=== PATIENT | male | born 1970 | race Caucasian/White ===

== ENCOUNTER 2020-06-19 18:00 | Emergency (ER) | payer BC, SELFPAY ==
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
[2020-06-19 18:10] VITALS: BP 157/111; PULSE 67; RESP 20; TEMP 36.5; O2SAT 97
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
[2020-06-19] MEDS: CYCLOBENZAPRINE HCL 10 MG TABLET PO (19:17)
--- NOTE | 2020-06-19 19:19 | PC.NURSE ---
REPORT PROVIDED TO ONCOMING NURSE YEISON NICHOLAS
[2020-06-19 19:49] VITALS: BP 161/110; PULSE 89; RESP 20; TEMP 37.1; O2SAT 98
== END 2020-06-19 20:01 | disposition home or self-care (01) ==
PROVIDERS: Emergency Provider Family Medicine; PCP Internal Medicine
DX: S22.39XA Fracture of one rib, unspecified side, initial encounter for closed fracture (principal); S12.8XXA Fracture of other parts of neck, initial encounter; Y04.0XXA Assault by unarmed brawl or fight, initial encounter
CPT/HCPCS: 70490; 71111; 71250; 99283; 99284; A9270

== ENCOUNTER 2021-01-11 08:05 | Outpatient (CLI) | payer BC, OTHER, SELFPAY ==
[2021-01-11 08:32] LABS: Estimated Glomerular Filt Rate > 60
== END 2021-01-11 08:06 | disposition home or self-care (01) ==
LOC: CHSIMG 08:08
PROVIDERS: PCP Internal Medicine; Visit Provider Internal Medicine
DX: R51.9 Headache, unspecified (principal)
CPT/HCPCS: 99199

== ENCOUNTER 2021-04-07 15:31 | Emergency (ER) | payer BC, OTHER, SELFPAY ==
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
--- NOTE | 2021-04-07 15:37 | ED.NAVMDI ---
HPI - Nausea/Vomiting/Diarrhea General Chief complaint: Nausea/Vomiting/Diarrhea Stated complaint: AMB Source: patient and RN notes reviewed Mode of arrival: ambulatory Limitations: no limitations History of Present Illness MD elicited complaint: nausea, vomiting and diarrhea Onset (ago): day(s) (1) Description of diarrhea: watery Associated nausea: Yes Associated abdominal pain: No Pain consistency: intermittent Severity: severe Exacerbating factors: eating Relieving factors: none Associated symptoms: cough and shortness of breath Related Data Home Medications Medication Instructions Recorded Confirmed amlodipine 5 mg PO DAILY 05/06/19 04/07/21 gemfibrozil 600 mg PO BID 05/06/19 04/07/21 quetiapine [Seroquel] 50 mg PO HS 04/07/21 04/07/21 Allergies Allergy/AdvReac Type Severity Reaction Status Date / Time No Known Allergies Allergy Unverified 11/01/19 14:25 Review of Systems Review of Systems: All systems reviewed & are unremarkable except as noted in HPI and below Constitutional: Constitutional: Reports chills Cardiovascular: Cardiovascular: Denies chest pain and Denies rapid heart rate Respiratory: Respiratory: Reports cough and Reports dyspnea Gastrointestinal: Gastrointestinal: Reports diarrhea, Reports nausea and Reports vomiting Genitourinary: Genitourinary: Denies oliguria, Denies dysuria and Denies urinary frequency Musculoskeletal: Musculoskeletal: Denies muscle cramps Neurologic: Denies dizziness and Denies syncope PMFSH Past Medical History Medical History (Updated 04/07/21 @ 18:05 by Sherif Gudino MD) Anxiety and depression Chronic back pain Hyperlipidemia Hypertension Surgical History Surgical History (Updated 04/07/21 @ 18:05 by Sherif Gudino MD) H/O gastric sleeve H/O inguinal hernia repair H/O umbilical hernia repair History of ankle surgery History of appendectomy Social History Social History (Updated 04/07/21 @ 18:06 by Sherif Gudino MD) Smoking packs per day: 1 Smoking cigarettes per day: 20.0 Smoking status: Former smoker Alcohol intake: current Alcohol use details: Daily Substance use: never Exam Const: General: no acute distress, alert and ill appearing acutely; No diaphoretic Nutritional Appearance: well nourished and obese centrally obese Orientation/consciousness: patient oriented x3 HENMT: Head: normal to inspection Ears: external ears normal General nose exam: Normal external nose present Face and sinus: normal facial exam Mouth: Yes moist mucous membranes Eyes: Cornea: corneas normal Pupils: Equal, round and reactive pupils present EOM: EOMs intact bilaterally Neck: Neck: normal visual inspection Resp: Effort & Inspection: normal respiratory effort Auscultation: clear to auscultation bilaterally Cardio: Rate: regular rate Rhythm: regular rhythm GI: GI Palp: Yes Soft to palpation, Yes Tenderness to palpation present (GI) (Mild Sore), No Guarding due to palpation present (GI) and No Rigid due to palpation Auscultation: normal bowel sounds Back/Spine/Pelvis: Cervical Spine: cervical ROM normal Thoracic/Lumbar Spine: thoraco-lumbar ROM normal Skin: General skin exam: normal color Rashes: no rashes Neuro: General: patient oriented x3, moves all extremities, no meningeal signs, no focal motor deficits and CN's II-XI intact bilaterally Speech: normal speech Gait exam (Neuro): Normal gait present Extrem: General: normal to inspection and no clubbing, cyanosis or edema Psych: Appearance: grossly normal and well kempt Mental Status: mental status grossly normal Affect: normal affect Attitude: cooperative Thought content: Yes Normal thought content present Course Vital Signs Vital signs: Vital Signs Temperature 36.6 C 04/07/21 15:40 Pulse Rate 88 04/07/21 15:40 Respiratory Rate 22 H 04/07/21 15:40 Blood Pressure 126/90 04/07/21 15:40 Pulse Oximetry 92 04/07/21 15:40 Temperature 36.6 C
[2021-04-07 15:40] VITALS: BP 126/90; PULSE 88; RESP 22; TEMP 36.6; O2SAT 92
[2021-04-07 15:56] LABS: Basophils Absolute Auto 0.05 K/mm3 (0.00-0.10); Basophils Percent Auto 0.4 % (0.0-1.0); Eosinophils Absolute Auto 0.14 K/mm3 (0.02-0.50); Eosinophils Percent Auto 1.2 % (1.0-6.0); Hematocrit 56.1 % (40.0-54.0); Hemoglobin 18.6 g/dL (14.0-18.0); Immature Granulocyte Absolute 0.05 K/mm3 (0.00-0.00); Immature Granulocyte Percent A 0.4 % (0.0-0.0); Lymphocytes Absolute Auto 0.47 K/mm3 (1.10-4.50); Lymphocytes Percent Auto 3.9 % (18.0-42.0); Mean Corpuscular HGB Conc 33.2 g/dL (32.0-36.0); Mean Corpuscular Hemoglobin 31.6 pg (27.0-31.0); Mean Corpuscular Volume 95.2 fL (78.0-102.0); Mean Platelet Volume 10.6 fl (8.7-11.0); Monocytes Absolute Auto 0.54 K/mm3 (0.10-0.90); Monocytes Percent Auto 4.5 % (2.0-11.0); Neutrophils Absolute Auto 10.8 K/mm3 (1.7-7.2); Neutrophils Percent Auto 89.6 % (50.0-70.0); Platelet Count Result 266 K/mm3 (150-420); Red Blood Count 5.89 M/mm3 (4.70-6.10); Red Cell Distribution Width 12.1 % (11.6-14.4)
[2021-04-07] MEDS: ONDANSETRON INJ 4 MG/2 ML VIAL IV PUSH (16:00)
[2021-04-07] MEDS: LACTATED RINGERS 1,000 ML 999 ML IV CONT (16:00)
[2021-04-07 16:22] LABS: Alanine Aminotransferase 32 U/L (16-63); Albumin Level 4.9 g/dL (3.4-5.0); Alkaline Phosphatase 120 U/L (46-116); Anion Gap 16 mmol/L (8-16); Aspartate Amino Transferase 14 U/L (15-37); Bilirubin,Total 0.8 mg/dL (0.00-1.00); Blood Urea Nitrogen 25 mg/dL (7-18); CRP < 0.5 mg/dL (0.0-0.9); Calcium 10.1 mg/dL (8.5-10.1); Carbon Dioxide 21 mmol/L (21-32); Chloride 102 mmol/L (98-108); Estimated CRCL calculation 45 ml/min; Estimated Glomerular Filt Rate 35; Ferritin 194 ng/mL (26-388); Glucose 120 mg/dL (70-99); Magnesium 2.5 mg/dL (1.8-2.4); Osmolality Calculated 293 mOsm/kg (285-295); Potassium 4.5 mmol/L (3.5-5.1); Sodium 139 mmol/L (136-145); Total Protein 9.1 g/dL (6.4-8.2)
[2021-04-07 16:31] LABS: Influenza A QL RT-PCR Negative (Negative); Influenza B QL RT-PCR Negative (Negative); Lactic Acid Reflex 2.4 mmol/L (0.4-2.0); SARS-CoV-2 RNA PCR Negative (Negative)
[2021-04-07 17:00] VITALS: BP 130/78; PULSE 85; RESP 20; TEMP 37.5; O2SAT 100
[2021-04-07 17:44] VITALS: BP 132/70; PULSE 89; RESP 20; TEMP 37.2; O2SAT 97
--- NOTE | 2021-04-07 17:59 | PC.NURSE ---
called for a ride, waiting in bed until arrival
[2021-04-07 18:00] VITALS: BP 126/80; PULSE 80; RESP 16; TEMP 36.6; O2SAT 97
[2021-04-07 18:53] LABS: Reflex Lactic Acid Yes or No Add Lactic
== END 2021-04-07 18:44 | disposition home or self-care (01) ==
PROVIDERS: Emergency Provider Emergency Medicine; PCP Internal Medicine
DX: K52.9 Noninfective gastroenteritis and colitis, unspecified (principal); E78.5 Hyperlipidemia, unspecified; I10 Essential (primary) hypertension; Z87.891 Personal history of nicotine dependence; Z20.822 Contact with and (suspected) exposure to COVID-19
CPT/HCPCS: 71046; 80053; 82728; 83605; 83735; 85025; 86140; 87502; 96361; 96374; 99283; 99284; C9803; J2405; J7120; U0003; U0005

== ENCOUNTER 2021-04-23 16:15 | Outpatient (CLI) | payer BC, SELFPAY ==
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
== END 2021-04-23 16:16 | disposition home or self-care (01) ==
LOC: CHSIMG 16:18
PROVIDERS: PCP Internal Medicine; Visit Provider Nurse Practitioner Family
DX: M25.512 Pain in left shoulder (principal); M25.571 Pain in right ankle and joints of right foot; M25.561 Pain in right knee; M54.50 Low back pain, unspecified
CPT/HCPCS: 72100; 73030; 73502; 73562; 73610

== ENCOUNTER 2021-05-05 16:07 | Outpatient (CLI) | payer BC, SELFPAY ==
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
== END 2021-05-05 16:08 | disposition home or self-care (01) ==
LOC: CHSIMG 16:09
PROVIDERS: PCP Internal Medicine; Visit Provider Internal Medicine
DX: M54.6 Pain in thoracic spine (principal)
CPT/HCPCS: 71046; 72072

== ENCOUNTER 2022-04-25 10:44 | Emergency (ER) | payer OTHER, SELFPAY ==
[2022-04-25 10:45] VITALS: BP 141/101; PULSE 82; RESP 16; TEMP 37.1; O2SAT 97
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
[2022-04-25] MEDS: TETANUS,DIPHTHERIA,AC PERTUSSIS ADULT 0.5 ML (ADACEL) IM (11:29)
[2022-04-25 11:42] LABS: Basophils Absolute Auto 0.06 K/mm3 (0.00-0.10); Basophils Percent Auto 1.3 % (0.0-1.0); Eosinophils Absolute Auto 0.36 K/mm3 (0.02-0.50); Hematocrit 43.2 % (40.0-54.0); Hemoglobin 14.5 g/dL (14.0-18.0); Immature Granulocyte Absolute 0.01 K/mm3 (0.00-0.00); Immature Granulocyte Percent A 0.2 % (0.0-0.0); Lymphocytes Absolute Auto 1.75 K/mm3 (1.10-4.50); Lymphocytes Percent Auto 38.8 % (18.0-42.0); Mean Corpuscular HGB Conc 33.6 g/dL (32.0-36.0); Mean Corpuscular Hemoglobin 31.7 pg (27.0-31.0); Mean Corpuscular Volume 94.3 fL (78.0-102.0); Mean Platelet Volume 10.7 fl (8.7-11.0); Monocytes Absolute Auto 0.49 K/mm3 (0.10-0.90); Monocytes Percent Auto 10.9 % (2.0-11.0); Neutrophils Absolute Auto 1.8 K/mm3 (1.7-7.2); Neutrophils Percent Auto 40.8 % (50.0-70.0); Platelet Count Result 258 K/mm3 (150-420); Red Blood Count 4.58 M/mm3 (4.70-6.10); Red Cell Distribution Width 11.9 % (11.6-14.4); White Blood Count 4.5 K/mm3 (4.8-10.8)
[2022-04-25 11:56] LABS: D Dimer 0.45 mg/L (0.19-0.50)
[2022-04-25 11:57] LABS: Alanine Aminotransferase 28 U/L (16-63); Albumin Level 4.1 g/dL (3.4-5.0); Alkaline Phosphatase 93 U/L (46-116); Anion Gap 6 mmol/L (8-16); Aspartate Amino Transferase 16 U/L (15-37); Bilirubin,Total 1.1 mg/dL (0.00-1.00); Blood Urea Nitrogen 15 mg/dL (7-18); Calcium 8.8 mg/dL (8.5-10.1); Carbon Dioxide 29 mmol/L (21-32); Chloride 104 mmol/L (98-108); Estimated CRCL calculation 125 ml/min; Estimated Glomerular Filt Rate > 60; Glucose 96 mg/dL (70-99); Osmolality Calculated 288 mOsm/kg (285-295); Potassium 3.5 mmol/L (3.5-5.1); Sodium 139 mmol/L (136-145); Total Protein 7.5 g/dL (6.4-8.2)
[2022-04-25 12:05] LABS: Lactic Acid Reflex 0.4 mmol/L (0.4-2.0); NT Pro B Type Natriuretic Pept 13 pg/mL (0-125); Troponin I 8.9 ng/L (0.00-60.4)
[2022-04-25 13:04] VITALS: BP 141/101; PULSE 82; RESP 20; TEMP 37; O2SAT 94
== END 2022-04-25 12:45 | disposition home or self-care (01) ==
PROVIDERS: Emergency Provider Internal Medicine Critical Care Medicine
DX: L03.115 Cellulitis of right lower limb (principal); I10 Essential (primary) hypertension; F41.9 Anxiety disorder, unspecified; F32.9 Major depressive disorder, single episode, unspecified; E78.5 Hyperlipidemia, unspecified; Z87.891 Personal history of nicotine dependence; Z23 Encounter for immunization
CPT/HCPCS: 36415; 80053; 83605; 83880; 84484; 85025; 85380; 87040; 90471; 90715; 99283

== ENCOUNTER 2023-10-02 14:24 | Emergency (ER) | payer OTHER, SELFPAY ==
[2023-10-02 14:24] VITALS: BP 156/105; PULSE 85; RESP 17; TEMP 36.6; O2SAT 98
--- NOTE | 2023-10-02 14:25 | PC.NURSE ---
Patient states he hasn't taken his blood pressure medication yet today, ERP is aware of vitals.
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
--- NOTE | 2023-10-02 15:07 | PC.NURSE ---
Patient refused printed prescription for tramadol, prescription placed in shred box.
[2023-10-02 15:08] VITALS: BP 156/105; PULSE 85; RESP 17; TEMP 36.6; O2SAT 98
== END 2023-10-02 15:08 | disposition home or self-care (01) ==
LOC: CHSED 15:19
PROVIDERS: Emergency Provider Emergency Medicine
DX: S61.011A Laceration without foreign body of right thumb without damage to nail, initial encounter (principal); Z87.891 Personal history of nicotine dependence; F41.8 Other specified anxiety disorders; E78.5 Hyperlipidemia, unspecified; I10 Essential (primary) hypertension; M54.9 Dorsalgia, unspecified; G89.29 Other chronic pain
CPT/HCPCS: 99283

== ENCOUNTER 2025-05-04 16:50 | Emergency (ER) | payer OTHER, SELFPAY ==
[2025-05-04 16:50] VITALS: BP 147/102; PULSE 86; RESP 16; TEMP 36.3; O2SAT 96
--- OUTSIDE RECORDS SUMMARY | 2025-05-04 16:54 | XMS_ITS | Data Portability ---
Author Organization [facility]/Ezio LUNDBERG SI (11) Address [address] [facility] [address] [place] [address] Care Team Providers Care Floor Associate Name Role Phone Unavailable Primary Care Provider [phone] Unavailable Referring Provider Assessment Encounter Date Assessment Date Assessment LastModified by Organization Details LastModified Time 11/12/2016 11/12/2016 Patient weighed about 162- 170 pounds when he was around 20 years old he was in the [employer] and in [place]. He developed daytime sleepiness in his early 20s but was not diagnosed at that time. He got injured to the ankle bone around age 26 and he gained a lot of weight it went up to 368 pounds. He was diagnosed with sleep apnea about 15 years ago and was placed on the CPAP he still has trouble using the CPAP regularly. He uses about 5 to 6 times a week about five hours a night. He's also on pain medications and muscle relaxant. He had a gastric sleeve surgery June 2015 and lost over 140 pounds. So it is uncertain if he sleep apnea still present and he is not on the right pressure. First we had to retest him for sleep apnea and digest the CPAP pressure. If you can use the CPAP regularly seven days a week and gets sufficient sleep then he will need the retesting while on the CPAP regularly and obtain sufficient sleep and off sedative medications. But it is difficult to diagnose if he has narcolepsy are not at this point. He also drinks about 5 to 6 whiskey per day. We will plan initially testing for sleep apnea both baseline testing and CPAP titration if needed and doing MSL tear this point does not do any good. rell Not available 11/12/2016 16:56:53 Plan of Treatment Reminders Order Date Submit Date Provider Last Modified By Organization Details Last Modified Time Details Appointments None record ed. Lab None record ed. Referral None record ed. Procedures None record ed. Surgeries None record ed. Imaging None record ed. Medication Orders None record ed. Patient TargetsNo targets recorded. Patient InstructionsNo instructions recorded. Reason for Referral None Reported. Procedures Surgical History Date Name Laterality Status Provider Name and Address Organization Details Recorded Time 11/21/19 Sleep Study completed Cuauhtemoc [place] - [facility] 11/23/2016 11:12:56 Arthconnor avitia df anika&/tib completed JEWELS PUENTES MD, ANTOINE F.C.C.P. [address] [place] [address], [place] - [facility] 11/12/2016 16:21:55 Hernia Repair completed JEWELS PUENTES MD, Patricia SCHULTZ.C.C.P. [address] [place] [address], [place] [facility] 11/12/2016 16:22:25 Appendectomy completed JEWELS PUENTES MD, ANTOINE F.C.C.P. [address] [place] [address] [place] [facility] 11/12/2016 16:22:30 Imaging Results None recorded. Procedure Notes None recorded. Medical Equipment None Reported. Allergies No known drug allergies Medications Name Sig Start Date Stop Date Status Note LastModified by Organization Details LastModified Time celecoxib 200 mg capsule active Not Available Not Available Not Available cyclobenzaprine 10 mg tablet active Not Available Not Available Not Available ibuprofen 800 mg tablet active Not Available Not Available Not Available valacyclovir 1 gram tablet active Not Available Not Available Not Available hydrocodone 5 mg-acetaminophen 325 mg tablet active Not Available Not Availabl e Not Available acetaminophen 300 mg-codeine 30 mg tablet active Not Available Not Available Not Available amlodipine 5 mg tablet active Not Available Not Available Not Available ciprofloxacin 500 mg tablet active Not Available Not Available No t Available tramadol 50 mg tablet active Not Available Not Available Not Available tamsulosin 0.4 mg capsule active Not Available Not Available Not Available gemfibrozil 600 mg tablet active Not Available Not Available No t Available lidocaine 5 % topical patch active Not Available Not Availabl e Not Available ursodiol 300 mg capsule active Not Available Not Available Not Available omeprazole 20 mg capsule,delayed release active Not Available Not Available Not Available levofloxacin 500 mg tablet active Not Available Not Available No t Available oxybutynin chloride 5 mg tablet active Not Available Not Available Not Available Lyrica 75 mg capsule active Not Available Not Available Not Available Vitals Date Recorded Body height Body mass index (BMI) Body weight Oxygen saturation Heart rate Respiratory rate Systolic And Diastolic Provider Name and Address Organization Details Last Updated DateTime 7 190.5 cm 26.7 kg/m2 23563.7 7 g 97 % 73 /min 16 /min 130/80 mm[Hg] JEWELS PUENTES MD, ANTOINE F.C.C.P. NPI [id number] [place] [address], [id number] [place] [address] [facility] 7 16:48:37 Social History Question Answer Notes LastModified by Organizat ion Details LastModified Time Tobacco Smoking Status Former Smoker JEWELS PUENTES MD, ANTOINE F.C.C.P. [address] [place] [address], [phone] [place] [address] [facility] 11/12/2016 16:20:08 What Is Your Level Of Caffeine Consumption? Heavy Information not available 11/12/2016 Marital Status Informatio n not available 11/12/2016 How Many Children Do You Have? 1 Information not available 11/12/2016 Sex: Unknown Functional Status Question Answer Note LastModified by Organization D etails LastModified Time What is your level of alcohol consumption? Heavy Information not available 11/12/2016 Mental Status None recorded. Family History Nothing Reported. Medical History Condition Response Hypertension Y Sleep Apnea Y Past Encounters Encounter ID Performer Location Encounter Start Date Encounter Closed Date Diagnosis/Indication Diagnosis SNOMED-CT Code Diagnosis ICD10 Code Diagnosis IMO Codes Diagnosis Note [id number] JEWELS PUENTES MD, ANTOINE F.C.C.P. [facility] [phone]) [phone] [place] [address] 11/12/2016 15:59:53 11/12/2016 17:25:36 Obstructive sleep apnea of adult 9757159902 103 G47.33 Hypersomnia 19567130 G47 .10 [id number] [facility] [place], [facility] [phone]) [phone] [place] [address] 11/20/2016 21:35:35 11/23/2016 16:31:16 Obstructive sleep apnea of adult 8614704243 103 G47.33 Health Concerns Section Related Observation LastModified by Organization Detai ls LastModified Time None Recorded Concern Status LastModified by Organization Details LastModified Time None Recorded Advance Directives Directive None Recorded Payers Insurance Date Sequence Insurance Name Policy Number Policy Gonzalez Covered Member ID Gonzalez Member ID Guarantor Name 12/30/2016 [facility] [id number] Solomon Alfred [id number] [place] Alfred 12/30/2016 [facility] 4 Solomon Alfred [id number] [place] Alfred 12/29/2016 1 [id number] [employer] [id number] Solomon H Alfred II [id number] [place] Alfred 12/30/2016 [facility] 4 [place] Alfred [id number] [place] Alfred Notes Date Note Type Note Provider Name and Address Organization Details Recorded Time 7 text/html Sleep History-Reported by PatientHPIFor the patient presents with chief complaint of, patient reportssleepiness. For it is stated that, patient reportshe goes to bed around 9-1030 pmandusually falls asleep within 10 min. For the patient arises in the morning feeling, patient reportsgroggy,sleepy,at approximately 4.30 am, andunrefreshed. For awakening at night, patient reportsapproximately 3 per/night. For the patient, patient reportsdoes snoreandsnoring is reported to be occasional(on cpap 6nights aweek.). For witnessed apneas, gasping for breath, patient reportshave been noted. For the patient is, patient reportscurrently working asandduring the day he is frequently sleepy or fatigued. For the patient reports that, patient reportshe sometimes nods off off at work and at home. For during quiet activities (e.g. reading, watching tv), patient reportsthe patient __,there is a history of napping, and14 naps per week are reported. For during driving, patient reportsand has nodded off while drivingandthere have not been fall asleep accidents. For the epworth sleepiness, patient reportsscore is 17 (normal is less than 10). For the patient, patient reportsdoes not awaken with morning headaches. For there is, patient reportsno awakening with chest pain. For there, patient reportshave been problems with concentration memory difficulties __ __. For symptoms of, patient reportsleg restlessness occur in the evening before bedtime. For leg restlessness, patient reportsoccurs 7 per/week and does interfere with sleep onset. For symptoms of restless leg syndrome, patient reportsare relieved with movement. For the patient reports, patient reportsno history of sleep paralysis hypnagogic hallucinations cataplexy. For restless sleep, patient reportshas been notedandand kicking at night has been noted. For the patient, patient reportsconsumes alcoholandamount reported per day is(5). For the patient, patient reportsreports that he smoked cigarettes but stopped smoking years ago. For weight, patient reportsloss is reported. For the patient reports that there, patient reportsis not a family history of a sleep disorder.. JEWELS PUENTES MD, ANTOINE, F.C.C.P. [address], [address], [facility] - [facility] 11/12/2016 16:57:25
--- OUTSIDE RECORDS SUMMARY | 2025-05-04 16:54 | XMS_ITS | Clinical Summary ---
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 Gender Identity Not on file Sexual Orientation Not on file Plan of Treatment Health Maintenance Due Date Last Done Comments Colorectal Cancer Screening Colonoscopy (10 Years) 1970 Annual Physical 1973 Hepatitis C 1988 DTaP, Tdap and Td Vaccines ( 1 - Tdap) 1989 Hepatitis B Vaccines (1 of 3 - 19+ 3-dose series) 1989 Pneumococcal Vaccine: 50+ Ye ars (1 of 1 - PCV) 2020 Zoster Vaccines (1 of 2) 2020 COVID-19 Vaccine (2024-2 6 season) 2025 Influenza Adult (#1) 2025 Hepatitis A Vaccines Aged Out No long er eligible based on patient's age to complete this topic Meningococcal B Vaccine Aged Out No l onger eligible based on patient's age to complete this topic Meningococcal Vaccine Aged Out No seble thelma eligible based on patient's age to complete this topic RSV Immunizations Under 20 Months Aged Out No longer eligible based on patient's age to complete this topic
--- OUTSIDE RECORDS SUMMARY | 2025-05-04 16:54 | XMS_ITS | Clinical Summary ---
Author Organization [facility] Address [address] [place] [address] Phone Care Team Providers Care Contact Centre Supervisor Name Role Phone Raya Velazquez MD Primary Care Provider [phone] Allergies No known active allergies Active Problems Problem Noted Date Diagnosed Date Laceration of scalp without foreign body 017 Immunizations Immunization Administration Dates Next Due TDAP Vaccine 07/27/2016 Social History Tobacco Use Types Packs/Day Years Used Date Smoking Tobacco: Never Assessed Sex and Gender Information Value Date Recorded Sex Assigned at Not on file Legal Sex Male 6:23 PM CDT Gender Identity Not on file Sexual Orientation Not on file Last Filed Vital Signs Vital Sign Reading Time Taken Comments Blood Pressure 147/83 07/27/2016 7:06 PM CDT Pulse 77 07/27/2016 7:06 PM CDT Temperature 37.1 C (98.7 F) 07/27/2016 6:26 PM CDT Respiratory Rate 18 07/27/2016 7:06 PM CDT Oxygen Saturation 97% 07/27/2016 7:06 PM CDT Inhaled Oxygen Concentration - - Weight 98.4 kg (217 lb) 07/27/2016 6:26 PM CDT Height 190.5 cm (6' 3) 07/27/2016 6:26 PM CDT Body Mass Index 27.12 07/27/2016 6:26 PM CDT Plan of Treatment Not on file Insurance [facility] Member Subscriber Plan / Payer (Ef fective for All Dates) Name:Sapphire Mendiola Relation to Subscriber:Self Name:Sapphire Mendiola Payer ID:[id number] Group ID:Not on file Type:Not on file Address: Darrian Conway Attn: Fee Basis [address] [address] Care Teams Contact Centre Supervisor Relationship Specialty Start Date End Date Raya Velazquez MD [address] [place] [address] PCP - General Internal Medicine 07/27/16
--- OUTSIDE RECORDS SUMMARY | 2025-05-04 16:54 | XMS_ITS | Clinical Summary ---
Author Organization [facility] Address [address] [place] [address] Care Team Providers Care Boat Builder And Repairer Name Role Phone No, Physician Primary Care Provider [phone] Raya Velazquez MD Unavailable [phone] Anselmo Xavier MD Unavailable [phone] [facility], Deshaun Lopez Unavailable Allergies No known active allergies Medications calcium carbonate-vitam in D3 (CALCIUM 500 + D) 1,250mg (500mg elemental) - 200 units per tablet unsure med dosage tid Active famotidine (PEPCID) 20 mg tablet daily. Active HYDROcodone-luca taminophen (NORCO) 5-325 mg per tabletIndicatio ns:Pain Take 1 tablet by mouth 2 (two) times a day. 0 8 Active meloxicam (MOBIC) 15 mg tablet daily. 5 Active multivit,Ca,iro k-BG-qgrgpz-lut (MULTIVITAL) [phone] gl-eby-qjl-mcg tablet 2 tab daily 5 Active cyanocobalamin (Vitamin B-12) 100 mcg tabletIndicatio ns:Prevention of Vitamin B12 Deficiency 1000 mg TAKE 1 TABLET DAILY DIRECTED. Active amLODIPine (NORVASC) 5 mg tablet Take 5 mg by mouth daily. Active calcium acetate (PHOSLO) 667 mg tablet Take 1,334 mg by mouth 3 (three) times a day with meals. Active celecoxib (CeleBREX) 100 mg capsule Take 100 mg by mouth 2 (two) times a day. Active gemfibrozil (LOPID) 600 mg tablet Take 600 mg by mouth 2 (two) times a day before breakfast and lunch. Active qtwvvmvp-ufs-ej ondr-vit C-hyal [phone] mg tablet Take by mouth. Activ e multivitamin with iron tablet Take 1 tablet by mouth daily. Active b complex vitamins capsule Take 1 capsule by mouth daily. Active Active Problems Problem Noted Date Diagnosed Date Right inguinal hernia 07/07/2016 Malabsorption 11/22/2015 Obesity 11/22/2015 History of bariatric surgery 06/10/2015 Eating disorder, unspecified 03/15/2015 Morbid obesity 02/21/2015 Benign essential hypertension 02/21/2015 Obstructive sleep apnea syndrome 02/21/2015 Pure hypercholesterolemia 02/21/2015 Degeneration of intervertebral disc of lumbar re gion 03/06/2014 Overview (08/14/2016): DDD (degenerative disc disease), lumbar Compression fracture of lumbar vertebra 03/06/20 14 Overview (08/14/2016): Compression fracture of L1 lumbar vertebra with routine healing Adiposity 03/06/2014 Overview (08/14/2016): Obesity Surgical History Surgery Date Site/Laterality Comments GASTRIC RESTRICTION SURGERY HERNIA REPAIR ORTHOPEDIC SURGERY APPENDECTOMY Medical History Medical History Date Comments Hypercholesterolemia High choles terol Kidney calculi Family History Medical History Relation Name Comments Heart disease Father Family history of cardiac disorder - (Added by TW Conv) Hypertension Father Family history of hypertension - (Added by TW Conv) Stroke Father Family history of cerebrovascular accident (CVA) - (Added by TW Conv) Diabetes Mother Diabetes mellit us; /Family history of diabetes mellitus - (Added by TW Conv) Heart disease Mother Family history of cardiac disorder - (Added by TW Conv) Hypertension Mother Family history of hypertension - (Added by TW Conv) Obesity Mother Family history of obesity - (Added by TW Conv) Relation Name Status Comments Father Mother Social History Tobacco Use Types Packs/Day Years Used Date Smoking Tobacco: Former Smokeless Tobacco: Never Alcohol Use Standard Drinks/Week Comments Yes 14 (1 standard drink = 0.6 oz pu re alcohol) Sex and Gender Information Value Date Recorded Sex Assigned at Not on file 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 Gender Identity Not on file Sexual Orientation Not on file Last Filed Vital Signs Vital Sign Reading Time Taken Comments Blood Pressure 115/75 03/04/2018 11:38 AM CDT Pulse 60 03/04/2018 11:38 AM CDT Temperature 36.4 C (97.6 F) 03/04/2018 11:38 AM CDT Respiratory Rate 18 11/06/2017 7:24 PM CDT Oxygen Saturation 95% 03/04/2018 11:38 AM CDT Inhaled Oxygen Concentration - - Weight 120.2 kg (265 lb) 08/11/2024 5:44 PM CDT Height 190.5 cm (6' 3) 08/11/2024 5:44 PM CDT Body Mass Index 33.12 08/11/2024 5:44 PM CDT Plan of Treatment Health Maintenance Due Date Last Done Comments Colon Cancer Screening-Colonoscopy 1970 Depression Screening 1970 Prostate Cancer Screening-PSA 1970 Hepatitis B Screening 1988 Regular Well Visit/Exam 18-64 1988 Pneumococcal vaccine <65 (1 of 2 - PCV) 1989 Zoster Vaccine (2 of 2) 02/26/2023 01/01/2023 Influenza Vaccine (#1) 2025 6, 05/16/2014, 02/07/2013, Additional history exists DTaP/Tdap/Td Vaccine (3 - Td or Tdap) 07/27/2026 07/27/2016, 10/08/2010 Hepatitis C Screening Completed 03/04/2018 Procedures Procedure Name Priority Date/Time Associated Diagnosis Comments HEPATITIS C ANTIBODY Routine 03/04/2018 2:15 PM CDT from Last 3 Months or Most Recently Relevant to Health Maintenance Results * Hepatitis C antibody (03/04/2018 2:15 PM CDT) Hep C Ab NONREACT NONREACTIVE 03/04/2018 3:32 PM CDT [facility] HISTORICAL RESULTS Comment: Siemens ExosectaurXP using ARMIN (chemiluminescent immunoassay) technology. NONREACTIVE: Antibodies to Hepatitis C not detected. This does not exclude early acute Hepatitis C infection, possibility of exposure to Hepatitis C, antibodies below detection limit, or to lack of antibody reactivity to the antigen used in this assay. EQUIVOCAL: Antibodies to Hepatitis C may or may not be present. Sample to be confirmed by real-time PCR method. REACTIVE: Antibodies to Hepatitis C detected.Sample to be confirmed by real-time PCR method. 03/04/2018 2:15 PM CDT 03/04/2018 2:16 PM CDT Tim Bruce MD LAB MICROBIOLOGY - GENERAL ORDERABLES Final Result [facility] HISTORICAL RESULTS from Last 3 Months or Most Recently Relevant to Health Maintenance Insurance [facility] Member Subscriber Plan / Payer (Ef fective 2014-Present) Name:Solomon Simon Relation to Subscriber:Self Name:Solomon Simon Payer ID:[id number] (NAIC) Group ID:[id number] Type:[facility] Address: [facility] [id number] [address] [facility] Care Teams Boat Builder And Repairer Relationship Specialty Start Date End Date No, Physician PCP - General 11/06/17 Raya Velazquez MD [address] [place] [address] 11/06/17 Anselmo Xavier MD [address] [place] [address] [place] [address] 07/08/16 [facility], Deshaun Lopez [address] [place] [address] Referring Physician Genetics 06/30/24
--- OUTSIDE RECORDS SUMMARY | 2025-05-04 16:54 | XMS_ITS | Encounter Summary ---
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
--- OUTSIDE RECORDS SUMMARY | 2025-05-04 16:54 | XMS_ITS ---
Author Organization Unknown Address [address] [place] [phone] Phone Care Team Providers Care Accounting Software Specialist Name Role Phone WESLY BONILLA Attending Unavailable NO PCP Primary Unavailable Results URINE PROTEIN ELECTROPHORESI S - Collect Date/Time: 06/13/2024 14:38 [facility] ID: [id number] [place] [address], [phone] LOINC: 2888-6 Test Value Unit Reference Range Code Code System Flag Protein,Total,Urine 7.9 Not Estab. 2888-6 LOINC Albumin, U 34.3 20483-8 LOINC Opmsn-1-Itkbbekz, U 3.2 98090-3 LOINC Dmyeq-5-Krgyplzv, U 19.2 53227-6 LOINC Beta Globulin, U 25.5 03340-1 LOINC Gamma Globulin, U 17.9 63045-5 LOINC M-Haris, % Not Observed Not Observed 83912-0 LOINC Please note: COMMENT 48488-6 LOINC COMPREHENSIVE METABOLIC PANE L - Collect Date/Time: 06/13/2024 14:25 [facility] ID: [id number] [place] [address], [phone] LOINC: 13646-8 Test Value Unit Reference Range Code Code System Flag FASTING UNKNOWN BUN 22 mg/dL L=7 H=20 3094-0 LOINC H CREATININE 1.00 mg/dL L=0.66 H=1.25 2160-0 LOINC GLUCOSE 99 mg/dL L=74 H=106 2345-7 LOINC SODIUM 139 mmol/L L=132 H=144 2951-2 LOINC POTASSIUM 4.1 mmol/L L=3.5 H=5.1 2823-3 LOINC CHLORIDE 105 mmol/L L=98 H=107 2075-0 LOINC CO2 21.0 mmol/L L=22.0 H=30.0 2028-9 LOINC L ANION GAP 17 L=10 H=20 48030-9 LOINC OSMOLALITY 291 mOs/kG L=280 H=296 81044-1 LOINC BUN/CREAT 22.0 3097-3 LOINC CALCIUM 9.2 mg/dL L=8.3 H=10.5 63120-1 LOINC AST 29 U/L L=15 H=46 1920-8 LOINC ALT 28 U/L L=9 H=72 1742-6 LOINC ALKALINE PHOS 61 U/L L=38 H=126 6768-6 LOINC TOTAL BILI 0.5 mg/dL L=0.2 H=1.3 1975-2 LOINC ALBUMIN 4.6 G/dL L=3.5 H=5.0 1751-7 LOINC TOTAL PROTEIN 7.8 g/L L=6.3 H=8.2 2885-2 LOINC A/G RATIO 1.4 27858-5 LOINC AGE 53 11091-8 LOINC eGFR NON-AFR 83 ml/min eGFR AFR AMER 100 ml/min TSH - Collect Date/Time: 08/2024 14:25 [facility] ID: [id number] [address] [place] [address], [phone] LOINC: 23938-6 Test Value Unit Reference Range Code Code System Flag TSH. < 0.150 uIU/L L=0.470 H=4.680 38523-3 LOINC L HEP B SURFACE AG - Collect D ate/Time: 06/13/2024 14:25 [facility] ID: [id number] [address] [place] [address], [phone] LOINC: 5196-1 Test Value Unit Reference Range Code Code System Flag HBsAg Screen Negative Negative 5196-1 LOINC SEND TO [facility]? NO HEPATITIS C AB (HCV Ab) - Co llect Date/Time: 06/13/2024 14:25 [facility] ID: [id number] [address] [place] [address], [phone] LOINC: 35439-0 Test Value Unit Reference Range Code Code System Flag Hep C Virus Ab Non Reactive Non Reactive 13154-1 LOINC SEND TO IFC? NO 25 HYDROXY VITAMIN D - Colle ct Date/Time: 06/13/2024 14:25 [facility] ID: [id number] [address] [place] [address], [phone] LOINC: Test Value Unit Reference Range Code Code System Flag VITAMIN D 77.8 ng/ml L=30.0 H=100 63288-6 LOINC HGB A1C -GLYCOHEMOGLOBIN - C ollect Date/Time: 06/13/2024 14:25 [facility] ID: [id number] [address] [place] [address], [phone] LOINC: 4548-4 Test Value Unit Reference Range Code Code System Flag HGBA1C 5.2 % 4548-4 LOINC HEAVY METALS BLOOD - Collect Date/Time: 06/13/2024 14:25 [facility] ID: [id number] [address] [place] [address], [phone] LOINC: Test Value Unit Reference Range Code Code System Flag Lead, Blood 1.9 0.0-3.4 87582-7 LOINC Arsenic, Blood 1 0-9 5583-0 LOINC Mercury, Blood <1.0 0.0-14.9 5685-3 LOINC CPK - Collect Date/Time: 08/2024 14:25 [facility] ID: [id number] [address] [place] [address], [phone] LOINC: 2157-6 Test Value Unit Reference Range Code Code System Flag CPK 128 U/L L=30 H=170 2157-6 LOINC MAGNESIUM - Collect Date/Nito e: 06/13/2024 14:25 [facility] ID: [id number] [address] [place] [address], [id number] LOINC: 14484-1 Test Value Unit Reference Range Code Code System Flag MAGNESIUM 2.0 mg/dL L=1.6 H=2.3 84480-2 LOINC PHOSPHORUS - Collect Date/Ti me: 06/13/2024 14:25 [facility] ID: [id number] [address] [place] [address], [phone] LOINC: 2777-1 Test Value Unit Reference Range Code Code System Flag PHOSPHORUS 3.4 mg/dL L=2.5 H=4.9 2777-1 LOINC VITAMIN B-12 - Collect Date/ Time: 06/13/2024 14:25 [facility] ID: [id number] [address] [place] [address], [id number] LOINC: 2132-9 Test Value Unit Reference Range Code Code System Flag VITAMIN B12 > 993 pq/mL L=239 H=931 H VITAMIN B-6 - Collect Date/T delmis: 06/13/2024 14:25 [facility] ID: [id number] [address] [place] [address], [phone] LOINC: 56672-3 Test Value Unit Reference Range Code Code System Flag Vitamin B6 45.0 3.4-65.2 98215-4 LOINC METHYLMALONIC ACID - Collect Date/Time: 06/13/2024 14:25 [facility] ID: [id number] [address] [place] [address], [phone] LOINC: 57661-4 Test Value Unit Reference Range Code Code System Flag Methylmalonic Acid, Serum 153 0-378 15669-8 LOINC FOLIC ACID (SERUM) - Collect Date/Time: 06/13/2024 14:25 [facility] ID: [id number] [address] [place] [address], [id number] LOINC: 2284-8 Test Value Unit Reference Range Code Code System Flag FOLATE > 20.0 ng/mL L=2.7 H=20.0 2284-8 LOINC PROTEIN ELECTROPHORESIS SERU M - Collect Date/Time: 06/13/2024 14:25 [facility] ID: [id number] [address] [place] [address], [id number] LOINC: 2885-2 Test Value Unit Reference Range Code Code System Flag Protein, Total 6.8 6.0-8.5 2885-2 LOINC Albumin 3.8 2.9-4.4 2862-1 LOINC Wlwkc-8-Gdleexlt 0.1 0.0-0.4 2865-4 LOINC Cnguw-5-Pmuakevz 0.7 0.4-1.0 2868-8 LOINC Beta Globulin 1.2 0.7-1.3 2871-2 LOINC Gamma Globulin 1.0 0.4-1.8 2874-6 LOINC M-Haris Not Observed Not Observed 55082-6 LOINC Globulin, Total 3.0 2.2-3.9 93859-8 LOINC A/G Ratio 1.3 0.7-1.7 1759-0 LOINC Please note: COMMENT 21150-2 LOINC P E Interpretation, S COMMENT 59307-7 LOINC PDF . 89079-8 LOINC HIV 4th GEN Ab 1&2 p24 Ag in -house - Collect Date/Time: 06/13/2024 14:25 [facility] ID: [id number] [address] [place], [place], [phone] LOINC: 19767-2 Test Value Unit Reference Range Code Code System Flag SEND TO [facility]? NO REFLEX? NO 5778-6 LOINC CBC W/ DIFF - Collect Date/T delmis: 06/13/2024 14:25 [facility] ID: [id number] [address] [place], [place], [phone] LOINC: 62386-8 Test Value Unit Reference Range Code Code System Flag WBC 5.5 10^3uL L=4.8 H=10.8 RBC 4.72 10^6uL L=4.60 H=6.20 HEMOGLOBIN 15.1 g/dL L=14.0 H=18.0 718-7 LOINC HEMATOCRIT 45.1 VOL% L=42.0 H=52.0 4544-3 LOINC MCV 95.6 fL L=80.0 H=94.0 H MCH 32.0 pg L=27.0 H=32.0 MCHC 33.5 g/dL L=32.0 H=36.0 PLATELETS 229 10^3uL L=100 H=400 09399-3 LOINC RDW 12.1 % L=11.7 H=15.5 %GRAN 53.7 % L=40.0 H=70.0 48194-3 LOINC %LYMPH 32.5 % L=20.0 H=45.0 736-9 LOINC %MONO 8.3 % L=2.0 H=10.0 02547-7 LOINC %EOS 3.6 % L=0.0 H=6.0 713-8 LOINC %BASO 1.5 % L=0.0 H=3.0 706-2 LOINC #NEUT 3.0 10^3uL L=1.9 H=7.6 08471-4 LOINC #LYMPH 1.8 10^3uL L=0.9 H=4.9 55235-8 LOINC #MONO 0.5 10^3uL L=0.1 H=0.9 51243-0 LOINC #EOS 0.2 10^3uL L=0.0 H=0.6 712-0 LOINC #BASO 0.08 10^3uL L=0.00 H=0.10 25970-1 LOINC #IM GRANS 0.0 10^3uL L=0.0 H=7.0 64941-6 LOINC %IM GRANS 0.4 % L=0.0 H=5.0 36487-3 LOINC %NRB 0.0 L=0.0 H=0.2 06288-8 LOINC #NRB 0.000 L=0.000 H=0.012 97190-7 LOINC MANUAL DIFF NOT INDICATED RBC MORPH NOT INDICATED TREPONEMA ABS rfx RPR & ABRAN T - Collect Date/Time: 06/13/2024 14:25 [facility] ID: [id number] [address] [place], [place], [phone] LOINC: 39676-1 Test Value Unit Reference Range Code Code System Flag T pallidum Antibodies Non Reactive Non Reactive 69477-6 LOINC CHG RPR? NO SEND TO [facility]? NO Social History Type Status Start Date End Date Code Code Syst em Smoking History Former smoker 1002552 SNOMED CT Sex Male Vital Signs Vital Sign Value Unit Titus Value Titus Unit Date/Time Recent/Initial? Code Code System Body Mass Index 34.30 kg/m2 06/13/2024 13:19 Initial 81842 -5 LOINC Systolic Blood Pressure 172 mm[Hg] 06/13/2024 13:19 Initial 8480- 6 LOINC Diastolic Blood Pressure 101 mm[Hg] 06/13/2024 13:19 Initial 8462- 4 LOINC Body Surface Area 2.46 m2 06/13/2024 13:19 Initial 3140- 1 LOINC Height 185.420 0 cm 73.00 in 06/13/2024 13:19 Initial 8302- 2 LOINC O2 Saturation 97 % 2024 13:19 Initial 48216 -5 LOINC Pulse 78.0 /min 06/13/2024 13:19 Initial 8867- 4 LOINC Respiration 18 /min 06/13/19 13:19 Initial 9279- 1 LOINC Weight 117.93 kg 260.00 lbs 06/13/2024 13:19 Initial 55208 -7 [facility] Assessment You had the following problems:DEGENERATIVE JOINT DISEASELUMBAR DISC DEGENERATIONOBESITYCOMPRESSION FRACTURE OF LUMBAR VERTEBRAKNEE PAINOSGOOD-SCHLATTERHYPERTENSIONSLEEP APNEAALCOHOL ABUSEALCOHOL DEPENDENCE Hospital Discharge Instructions Should you have any questions prior to discharge, please contact a member of your healthcare team. If you have left the hospital and have any questions, please contact your primary care physician. Reason For Referral No Data Found Procedures Procedure Name Date Status Code Code Syste m Left carpal tunnel release completed 033399975 0 SNOMEDCT Problems Problem Start Date Resolved Date Status Code Code System DEGENERATIVE JOINT DISEASE active 396 307153 SNOMED-CT LUMBAR DISC DEGENERATION active 18421 006 SNOMED-CT OBESITY active 924484903 SNOMED-CT COMPRESSION FRACTURE OF LUMB AR VERTEBRA active 435372317 SNOMED-CT KNEE PAIN active 7525695321 SNOMED-CT FERMIN-SCHLATTER active 76315606 SNO MED-CT HYPERTENSION active 02484765 SNOMED- CT SLEEP APNEA active 31187257 SNOMED-C T ALCOHOL ABUSE active 83521333 SNOMED -CT ALCOHOL DEPENDENCE active 51212401 S NOMED-CT Allergies and Adverse Reactions Allergy Substance Reaction Severity Start Date Concern Status Co de Code System CYCLOBENZAPRINE Active 74942 RxNorm AMLODIPINE Active RxNorm ROBAXIN Active 20280911 RxNorm Plan of Treatment Wesly New Patient Visit 06/13/2024 Encounters Encounter Diagnosis Start Date Code Code Sys tem Fibromyalgia 06/13/2024 SNOMED-CT Personal Care Team Section Performer Name Performer Role Active Date Inactive LÁZARO Goel PCP - Primary care physician 2022-03-03 2022-03-03
--- OUTSIDE RECORDS SUMMARY | 2025-05-04 16:54 | XMS_ITS | Encounter Summary ---
Author Organization [facility] Facility Care Team Providers Care Clarifying Plant Operator Name Role Phone No, Physician Primary Care Provider [phone] Raya Velazquez MD Unavailable [phone] Anselmo Xavier MD Unavailable [phone] [facility], Deshaun Lopez Unavailable Encounter Details Date Type Department Care Team (Latest Contact Info) Description 12/17/2017 Orders Only [facility]IN[facility] Provider, MD [facility] [address] [place] [address] Social History Tobacco Use Types Packs/Day Years Used Date Smoking Tobacco: Former Smokeless Tobacco: Never Alcohol Use Standard Drinks/Week Comments Yes 14 (1 standard drink = 0.6 oz pu re alcohol) Sex and Gender Information Value Date Recorded Sex Assigned at Not on file Legal Sex Male 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 Historical Provider Final Res ult documented in this encounter Visit Diagnoses Not on filedocumented in this encounter Care Teams Clarifying Plant Operator Relationship Specialty Start Date End Date No, Physician PCP - General 11/06/17 Raya Velazquez MD [address] [place] [address] 11/06/17 Anselmo Xavier MD [address] [facility] [place] [address] 07/08/16 [facility], Deshaun Lopez [address] [place] [address] Referring Physician Genetics 06/30/24 documented as of this encounter
--- OUTSIDE RECORDS SUMMARY | 2025-05-04 16:54 | XMS_ITS | Encounter Summary ---
Author Organization [facility] Facility Care Team Providers Care Radio Rigger Name Role Phone No, Physician Primary Care Provider [phone] Raya Velazquez MD Unavailable [phone] Anselmo Xavier MD Unavailable [phone] [facility], Deshaun Lopez Unavailable Encounter Details Date Type Department Care Team (Latest Contact Info) Description 03/04/2018 Orders Only [facility] CLINCONV Provider, MD [facility] [address] [place] [address] Social History Tobacco Use Types Packs/Day Years Used Date Smoking Tobacco: Former Smokeless Tobacco: Never Alcohol Use Standard Drinks/Week Comments Yes 14 (1 standard drink = 0.6 oz pu re alcohol) Sex and Gender Information Value Date Recorded Sex Assigned at Not on file 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 Historical Provider Final Res ult documented in this encounter Visit Diagnoses Not on filedocumented in this encounter Care Teams Radio Rigger Relationship Specialty Start Date End Date No, Physician PCP - General 11/06/17 Raya Velazquez MD [address] [place] [address] 11/06/17 Anselmo Xavier MD [address] [facility] [place] [address] 07/08/16 [facility], Deshaun Lopez [address] [place] [address] Referring Physician Genetics 06/30/24 documented as of this encounter
--- NOTE | 2025-05-04 16:58 | ED.EYEPROB ---
HPI - Eye Problem General Chief complaint: Eye Problems Stated complaint: eye irritation Time Seen by Provider: 05/04/25 16:58 Source: patient Mode of arrival: ambulatory Limitations: no limitations History of Present Illness HPI Narrative: Patient is a 54-year-old male with a right eye redness for the past day. Patient awoke with red eye today. Patient has not been drilling metal or using any metal components. He has not been doing any outside work. chief complaint: eye pain (Right eye) and eye redness (Right eye) Onset (ago): day(s) (One) Onset description: gradual Duration: constant Location: right eye Eye Symptoms: burning, redness and pain (Pressure-like minimal) Place: home Mechanism: none Severity: mild Severity scale (1-10): 2 If Pain, Quality: burning and other (Pressure-like) Context: other (Patient has onset of a right eye redness over the past day with unclear etiology) Associated symptoms: none Treatments Prior to Arrival: none Related Data Home Medications ?Medication ?Instructions ?Recorded ?Confirmed ?Last Taken ?Type amlodipine 5 mg tablet 5 mg PO DAILY 05/06/19 10/02/23 Unknown History gemfibrozil 600 mg tablet 600 mg PO BID 05/06/19 10/02/23 Unknown History quetiapine 50 mg tablet (Seroquel) 50 mg PO HS 04/07/21 10/02/23 Unknown History Allergies Allergy/AdvReac Type Severity Reaction Status Date / Time No Known Allergies Allergy Verified 05/04/25 16:55 Review of Systems Review of Systems: All systems reviewed & are unremarkable except as noted in HPI and below Constitutional: Constitutional: Reports no additional constitutional complaints Eyes: Eyes: Reports no additional eye complaints ENT: Reports system reviewed and no additional complaints, except as documented Cardiovascular: Cardiovascular: Reports no additional cardiovascular complaints Respiratory: Respiratory: Reports no additional respiratory complaints Gastrointestinal: Gastrointestinal: Reports no additional gastrointestinal complaints Genitourinary: Genitourinary: Reports no additional male genitourinary complaints Musculoskeletal: Musculoskeletal: Reports no additional musculoskeletal complaints Integumentary/Breasts: Skin/Breast: Reports system reviewed and no additional complaints, except as docu Neurologic: Reports system reviewed and no additional complaints, except as documented Psychiatric: Psychiatric: Reports no additional psychiatric complaints Endocrine: Endocrine: Reports no additional endocrine complaints Hematologic/Lymphatic: Hematologic/Lymphatic: Reports no additional hematologic/lymphatic complaints Allergic/Immunologic: Allergic/Immunologic: Reports no additional allergic/immunologic complaints [facility] Past Medical History Medical History Chronic back pain Anxiety and depression Hypertension Hyperlipidemia Surgical History Surgical History History of appendectomy H/O gastric sleeve History of ankle surgery H/O umbilical hernia repair H/O inguinal hernia repair Social History Social History Smoking packs per day: 1 Smoking cigarettes per day: 20.0 Smoking status: Former smoker Alcohol intake: current Alcohol use details: Daily Substance use: never Exam Const: General: healthy appearing Nutritional Appearance: well nourished Orientation/consciousness: patient oriented x3 HENMT: Head: normal to inspection Ears: external ears normal Face/Nose/Sinus: Normal external nose present Eyes: Conjunctivae: abnormal conjunctivae Pupils: Equal, round and reactive pupils present EOM: EOMs intact bilaterally Direct Ophthalmoscopy: no photophobia Other: Right eye conjunctiva is red and inflamed minimally without corneal involvement and there are no corneal abrasions or foreign bodies on examination with direct visualization Neck: Neck: normal visual inspection Chest: Chest palpation & inspection: normal inspection of the chest Resp: Effort & Inspection: normal respiratory effort and not labored Auscultation: clear to auscultation bilaterally and no crackles Cardio: Rate: regular rate Rhythm: regular rhythm Heart sounds: no murmurs GI: Inspection: non-distended GI Palp: Yes Soft to palpation and No Tenderness to palpation present (GI) Auscultation: normal bowel sounds : General: Yes bladder normal to palpation Back/Spine/Pelvis: Back: no CVA tenderness Skin: General skin exam: normal color Rashes: no rashes Wounds: no wounds Neuro: General: patient oriented x3, moves all extremities and no meningeal signs Extrem: General: normal to inspection, no clubbing, cyanosis or edema and no pedal edema Psych: Mental Status: mental status grossly normal Affect: normal affect Attitude: cooperative Course Vital Signs Vital signs: Vital Signs Temperature 36.3 C L 05/04/25 16:50 Pulse Rate 86 05/04/25 16:50 Respiratory Rate 16 05/04/25 16:50 Blood Pressure 147/102 H 05/04/25 16:50 Pulse Oximetry 96 05/04/25 16:50 Oxygen Delivery Room Air 05/04/25 16:50 Temperature 36.3 C L 05/04/25 16:50 Pulse Rate 86 05/04/25 16:50 Respiratory Rate 16 05/04/25 16:50 Blood Pressure 147/102 H 05/04/25 16:50 Pulse Oximetry 96 05/04/25 16:50 Oxygen Delivery Room Air 05/04/25 16:50 MDM MDM Narrative Medical decision making narrative: Patient is a 54-year-old male with a right eye inflammation for the past day. Maxitrol given here. Prescription at pharmacy. Differential Diagnosis Differential Diagnosis: Conjunctivitis, periorbital cellulitis Discharge Plan Discharge Clinical Impression: Conjunctivitis Qualifiers: Conjunctivitis type: acute Acute conjunctivitis type: bacterial Laterality: right Qualified Code(s): H10.31 - Unspecified acute conjunctivitis, right eye Patient Disposition: Home Condition: Stable Instructions: Antibiotic Form Patient Language: Pashto Prescriptions: New neomycin-polymyxin B-dexameth [Maxitrol] 3.5mg/mL-10,000 unit/mL-0.1 % drops,suspension 1 drp RIGHT EYE TID 7 Days Qty: 5 0RF No Action amlodipine 5 mg tablet 5 mg PO DAILY gemfibrozil 600 mg tablet 600 mg PO BID quetiapine [Seroquel] 50 mg Tablet 50 mg PO HS ondansetron HCl [Zofran] 4 mg tablet 4 mg PO Q8H PRN (Reason: nausea and vomiting) Qty: 10 0RF clindamycin HCl 300 mg capsule 300 mg PO Q8H Qty: 20 0RF tramadol 50 mg tablet 50 mg PO Q6H PRN (Reason: pain) Qty: 20 0RF cyclobenzaprine 10 mg tablet 10 mg PO TID PRN (Reason: muscle spasm) Qty: 30 0RF Follow-up/Referrals: [facility] [Primary Care Provider, Medical] Time of Disposition: 17:44
[2025-05-04] MEDS: NEOMYCIN/POLYMYXIN/DEXAMETH OP SUSP 5 ML BTL 2 DROP RIGHT EYE (17:45)
[2025-05-04 17:49] VITALS: BP 147/102; PULSE 86; RESP 16; TEMP 36.3; O2SAT 96
== END 2025-05-04 17:49 | disposition home or self-care (01) ==
PROVIDERS: Emergency Provider Emergency Medicine
DX: H10.31 Unspecified acute conjunctivitis, right eye (principal); E78.5 Hyperlipidemia, unspecified; I10 Essential (primary) hypertension; Z87.891 Personal history of nicotine dependence
CPT/HCPCS: 99283; A9270